=== PATIENT | female | born 1960 | race Caucasian/White ===

== ENCOUNTER 2021-07-18 07:23 | Day surgery (SDC) | payer MEDICAID, SELFPAY ==
[~2021-07-18] VITALS: Ht 157.5 cm; Wt 72.6 kg
[2021-07-18] MEDS ORDERED: SIMETHICONE 40 MG/0.6 ML ML ONE (09:08)
[2021-07-18] MEDS ORDERED: MEPERIDINE 100 MG INJ. 100 MG/ML VIAL ONE (09:08)
[2021-07-18] MEDS ORDERED: MIDAZOLAM HCL 5 MG/5 ML VIAL ONE (09:09)
[2021-07-18] MEDS ORDERED: MIDAZOLAM HCL 5 MG/5 ML VIAL IVP ONE ×3 (09:18→09:22)
[2021-07-18] MEDS ORDERED: MEPERIDINE 100 MG INJ. 100 MG/ML VIAL IV ONE (09:18)
[2021-07-18 12:25] VITALS: BP_SYST 108
== END 2021-07-18 10:30 | disposition home or self-care (01) ==
LOC: SDS 07:23 → SMU 07:49 → SDS 10:30
PROVIDERS: ATTEND Internal Medicine Gastroenterology
DX: R19.5 Other fecal abnormalities (principal); D12.4 Benign neoplasm of descending colon; K57.30 Diverticulosis of large intestine without perforation or abscess without bleeding; K64.8 Other hemorrhoids; J45.909 Unspecified asthma, uncomplicated; E78.00 Pure hypercholesterolemia, unspecified; I10 Essential (primary) hypertension; Z80.0 Family history of malignant neoplasm of digestive organs; Z87.891 Personal history of nicotine dependence; Z20.822 Contact with and (suspected) exposure to COVID-19; Z79.899 Other long term (current) drug therapy
CPT/HCPCS: 45385; 88305; 99152; G0378; J2175; J2250; U0003; 45384